=== PATIENT | female | born 1970 | race Caucasian/White ===

== ENCOUNTER → 2016-10-04 | Outpatient (CLI) | payer OTHER | END | disposition home or self-care (01) | LOC: ECT 09:01 | DX: F33.3 Major depressive disorder, recurrent, severe with psychotic symptoms (principal) ==

== ENCOUNTER 2016-10-19 09:22 | Outpatient (RCR) | payer OTHER ==
[~2016-10-19] VITALS: Ht 175.3 cm; Wt 63.5 kg
[2016-10-19] MEDS ORDERED: Methohexital Sodium Syr 100mg/10ml IVP ONE ×3 (09:23)
[2016-10-19] MEDS ORDERED: NS 500ML IV ONE ×3 (09:23)
[2016-10-19] MEDS ORDERED: Midazolam 2mg/2ml Inj ONE ×3 (09:23)
[2016-10-19] MEDS ORDERED: Succinylcholine 20mg/ml 10ml vial ONE ×3 (09:23)
[2016-10-19] MEDS ORDERED: Ketorolac 30mg Inj ONE ×2 (09:23)
[2016-10-19] MEDS ORDERED: Sodium Chloride 500ML 500 ML IV ONE (16:30)
[2016-10-21] MEDS ORDERED: Midazolam 2mg/2ml Inj ONE (06:00)
[2016-10-21] MEDS ORDERED: Methohexital Sodium Syr 100mg/10ml IVP ONE (06:00)
[2016-10-21] MEDS ORDERED: Ketorolac 60mg Inj ONE (06:00)
[2016-10-21] MEDS ORDERED: NS 500ML IV ONE (06:00)
[2016-10-21] MEDS ORDERED: Succinylcholine 20mg/ml 10ml vial ONE (06:00)
[2016-10-21] MEDS ORDERED: Sodium Chloride 500ML 500 ML IV ONE (09:19)
[2016-10-24] MEDS ORDERED: Sodium Chloride 500ML 500 ML IV ONE (10:35)
[2016-10-26] MEDS ORDERED: Succinylcholine 20mg/ml 10ml vial ONE (08:00)
[2016-10-26] MEDS ORDERED: Midazolam 2mg/2ml Inj ONE (08:00)
[2016-10-26] MEDS ORDERED: Methohexital Sodium Syr 100mg/10ml IVP ONE (08:00)
[2016-10-26] MEDS ORDERED: NS 500ML IV ONE (08:00)
[2016-10-26] MEDS ORDERED: Sodium Chloride 500ML 500 ML IV ONE (11:05)
[2016-10-28] MEDS ORDERED: Methohexital Sodium Syr 100mg/10ml IVP ONE (06:00)
[2016-10-28] MEDS ORDERED: Succinylcholine 20mg/ml 10ml vial ONE (06:00)
[2016-10-28] MEDS ORDERED: Ketorolac 60mg Inj ONE (06:00)
[2016-10-28] MEDS ORDERED: Midazolam 2mg/2ml Inj ONE (06:00)
[2016-10-28] MEDS ORDERED: NS 500ML IV ONE (06:00)
[2016-10-28] MEDS ORDERED: Sodium Chloride 500ML 500 ML IV ONE (09:33)
[2016-10-31] MEDS ORDERED: Ketorolac 30mg Inj ONE (09:23)
[2016-10-31] MEDS ORDERED: NS 500ML IV ONE (09:23)
[2016-10-31] MEDS ORDERED: Succinylcholine 20mg/ml 10ml vial ONE (09:23)
[2016-10-31] MEDS ORDERED: Methohexital Sodium Syr 100mg/10ml IVP ONE (09:23)
[2016-10-31] MEDS ORDERED: Midazolam 2mg/2ml Inj ONE (09:23)
[2016-10-31] MEDS ORDERED: Sodium Chloride 500ML 500 ML IV ONE (10:22)
[2016-11-02] MEDS ORDERED: Methohexital Sodium Syr 100mg/10ml IVP ONE (07:00)
[2016-11-02] MEDS ORDERED: Succinylcholine 20mg/ml 10ml vial ONE (07:00)
[2016-11-02] MEDS ORDERED: NS 500ML IV ONE (07:00)
[2016-11-02] MEDS ORDERED: Ketorolac 30mg Inj ONE (07:00)
[2016-11-02] MEDS ORDERED: Midazolam 2mg/2ml Inj ONE (07:00)
[2016-11-02] MEDS ORDERED: Sodium Chloride 500ML 500 ML IV ONE (10:47)
[2016-11-04] MEDS ORDERED: NS 500ML IV ONE (06:00)
[2016-11-04] MEDS ORDERED: Methohexital Sodium Syr 100mg/10ml IVP ONE (06:00)
[2016-11-04] MEDS ORDERED: Ketorolac 60mg Inj ONE (06:00)
[2016-11-04] MEDS ORDERED: Midazolam 2mg/2ml Inj ONE (06:00)
[2016-11-04] MEDS ORDERED: Succinylcholine 20mg/ml 10ml vial ONE (06:00)
[2016-11-04] MEDS ORDERED: Sodium Chloride 500ML 500 ML IV ONE (09:31)
[2016-11-07] MEDS ORDERED: Midazolam 2mg/2ml Inj ONE (06:00)
[2016-11-07] MEDS ORDERED: NS 500ML IV ONE (06:00)
[2016-11-07] MEDS ORDERED: Ketorolac 60mg Inj ONE (06:00)
[2016-11-07] MEDS ORDERED: Methohexital Sodium Syr 100mg/10ml IVP ONE (06:00)
[2016-11-07] MEDS ORDERED: Succinylcholine 20mg/ml 10ml vial ONE (06:00)
[2016-11-07] MEDS ORDERED: Sodium Chloride 500ML 500 ML IV ONE (12:02)
[2016-11-09] MEDS ORDERED: Midazolam 2mg/2ml Inj ONE (07:00)
[2016-11-09] MEDS ORDERED: Methohexital Sodium Syr 100mg/10ml IVP ONE (07:00)
[2016-11-09] MEDS ORDERED: NS 500ML IV ONE (07:00)
[2016-11-09] MEDS ORDERED: Ketorolac 30mg Inj ONE (07:00)
[2016-11-09] MEDS ORDERED: Succinylcholine 20mg/ml 10ml vial ONE (07:00)
[2016-11-09] MEDS ORDERED: Sodium Chloride 500ML 500 ML IV ONE (10:27)
== END 2016-11-12 | disposition home or self-care (01) ==
LOC: ECT 09:22
DX: F33.3 Major depressive disorder, recurrent, severe with psychotic symptoms (principal)
CPT/HCPCS: 90870; J0330; J1885; J2250; J2405; J7040

== ENCOUNTER 2016-11-14 10:20 | Outpatient (RCR) | payer OTHER ==
[~2016-11-14] VITALS: Ht 175.3 cm; Wt 63.5 kg
[2016-11-14] MEDS ORDERED: Ketorolac 30mg Inj ONE ×2 (10:21)
[2016-11-14] MEDS ORDERED: Midazolam 2mg/2ml Inj ONE ×2 (10:21)
[2016-11-14] MEDS ORDERED: Succinylcholine 20mg/ml 10ml vial ONE ×2 (10:21)
[2016-11-14] MEDS ORDERED: Methohexital Sodium Syr 100mg/10ml IVP ONE ×2 (10:21)
[2016-11-14] MEDS ORDERED: NS 500ML IV ONE ×2 (10:21)
[2016-11-14] MEDS ORDERED: Sodium Chloride 500ML 500 ML IV ONE (11:19)
[2016-11-16] MEDS ORDERED: Methohexital Sodium Syr 100mg/10ml IVP ONE (07:00)
[2016-11-16] MEDS ORDERED: Ketorolac 30mg Inj ONE (07:00)
[2016-11-16] MEDS ORDERED: NS 500ML IV ONE (07:00)
[2016-11-16] MEDS ORDERED: Succinylcholine 20mg/ml 10ml vial ONE (07:00)
[2016-11-16] MEDS ORDERED: Midazolam 2mg/2ml Inj ONE (07:00)
[2016-11-16] MEDS ORDERED: Sodium Chloride 500ML 500 ML IV ONE (11:28)
[2016-11-16] MEDS ORDERED: Atropine Sulfate 0.4mg/ml inj IVP PRN (11:28)
[2016-11-23] MEDS ORDERED: Methohexital Sodium Syr 100mg/10ml IVP ONE (08:00)
[2016-11-23] MEDS ORDERED: Ketorolac 30mg Inj ONE (08:00)
[2016-11-23] MEDS ORDERED: Midazolam 2mg/2ml Inj ONE (08:00)
[2016-11-23] MEDS ORDERED: Succinylcholine 20mg/ml 10ml vial ONE (08:00)
[2016-11-23] MEDS ORDERED: NS 500ML IV ONE (08:00)
[2016-11-23] MEDS ORDERED: Sodium Chloride 500ML 500 ML IV ONE (09:53)
[2016-12-05 10:05] VITALS: BP 122/86
[2016-12-05] MEDS ORDERED: Sodium Chloride 500ML 500 ML IV ONE (10:16)
[2016-12-05 10:20] VITALS: BP 108/56
[2016-12-05 10:25] VITALS: BP 112/71
[2016-12-05 10:30] VITALS: BP 121/72
[2016-12-05 10:35] VITALS: BP 115/66
== END 2016-12-13 | disposition home or self-care (01) ==
LOC: ECT 10:20
DX: F33.3 Major depressive disorder, recurrent, severe with psychotic symptoms (principal)
CPT/HCPCS: 90870; J0330; J1885; J2250; J2405; J7040

== ENCOUNTER 2016-12-26 07:38 | Outpatient (RCR) | payer OTHER ==
[~2016-12-26] VITALS: Ht 175.3 cm; Wt 63.5 kg
[2016-12-26] MEDS ORDERED: Succinylcholine 20mg/ml 10ml vial ONE (07:39)
[2016-12-26] MEDS ORDERED: Midazolam 2mg/2ml Inj ONE (07:39)
[2016-12-26] MEDS ORDERED: Ketorolac 30mg Inj ONE (07:39)
[2016-12-26] MEDS ORDERED: NS 500ML ONE (07:39)
[2016-12-26] MEDS ORDERED: Methohexital Sodium Syr 100mg/10ml IVP ONE (07:39)
[2016-12-26 10:35] VITALS: BP 121/76
[2016-12-26 10:45] VITALS: BP 125/71
[2016-12-26] MEDS ORDERED: Sodium Chloride 500ML 500 ML IV ONE (10:45)
[2016-12-26 10:50] VITALS: BP 119/65
[2016-12-26 10:55] VITALS: BP 117/71
[2016-12-26 11:00] VITALS: BP 125/65
== END 2017-01-12 | disposition home or self-care (01) ==
LOC: ECT 07:38
DX: F33.3 Major depressive disorder, recurrent, severe with psychotic symptoms (principal)
CPT/HCPCS: 90870; J0330; J1885; J2250; J2405; J7040

== ENCOUNTER 2017-01-16 06:00 | Outpatient (RCR) | payer OTHER ==
[~2017-01-16] VITALS: Ht 30.5 cm; Wt 0.5 kg
[2017-01-16] MEDS ORDERED: Succinylcholine 20mg/ml 10ml vial ONE (06:01)
[2017-01-16] MEDS ORDERED: Midazolam 2mg/2ml Inj ONE (06:01)
[2017-01-16] MEDS ORDERED: Methohexital Sodium Syr 100mg/10ml IVP ONE (06:01)
[2017-01-16] MEDS ORDERED: Ketorolac 60mg Inj ONE (06:01)
[2017-01-16] MEDS ORDERED: NS 500ML ONE (06:01)
[2017-01-16 10:23] VITALS: BP 128/82
[2017-01-16] MEDS ORDERED: Sodium Chloride 500ML 500 ML IV ONE (10:34)
[2017-01-16 10:35] VITALS: BP 151/81
[2017-01-16 10:40] VITALS: BP 139/83
[2017-01-16 10:45] VITALS: BP 134/73
[2017-01-16 10:50] VITALS: BP 132/71
== END 2017-02-12 | disposition home or self-care (01) ==
LOC: EDSEX → ECT 06:00
DX: F33.3 Major depressive disorder, recurrent, severe with psychotic symptoms (principal)
CPT/HCPCS: 90870; J0330; J2250; J2405; J7040

== ENCOUNTER 2017-02-15 07:09 | Outpatient (RCR) | payer OTHER ==
[~2017-02-15] VITALS: Ht 175.3 cm; Wt 63.5 kg
[2017-02-20] MEDS ORDERED: Succinylcholine 20mg/ml 10ml vial ONE (07:00)
[2017-02-20] MEDS ORDERED: Ketorolac 30mg Inj ONE (07:00)
[2017-02-20] MEDS ORDERED: Methohexital Sodium Syr 100mg/10ml IVP ONE (07:00)
[2017-02-20] MEDS ORDERED: NS 500ML ONE (07:00)
[2017-02-20] MEDS ORDERED: Midazolam 2mg/2ml Inj ONE (07:00)
[2017-02-20 11:40] VITALS: BP 132/84
[2017-02-20 12:03] VITALS: BP 108/55
[2017-02-20] MEDS ORDERED: Atropine Sulfate 0.4mg/ml inj IVP PRN (12:03)
[2017-02-20] MEDS ORDERED: Sodium Chloride 500ML 500 ML IV ONE (12:03)
[2017-02-20 12:08] VITALS: BP 114/67
[2017-02-20 12:13] VITALS: BP 114/69
[2017-02-20 12:18] VITALS: BP 112/73
[2017-03-13] MEDS ORDERED: Midazolam 2mg/2ml Inj ONE (07:00)
[2017-03-13] MEDS ORDERED: Ketorolac 30mg Inj ONE (07:00)
[2017-03-13] MEDS ORDERED: Methohexital Sodium Syr 100mg/10ml IVP ONE (07:00)
[2017-03-13] MEDS ORDERED: Succinylcholine 20mg/ml 10ml vial ONE (07:00)
[2017-03-13] MEDS ORDERED: NS 500ML ONE (07:00)
[2017-03-15] MEDS ORDERED: Methohexital Sodium Syr 100mg/10ml IVP ONE (08:00)
[2017-03-15] MEDS ORDERED: Midazolam 2mg/2ml Inj ONE (08:00)
[2017-03-15] MEDS ORDERED: NS 500ML ONE (08:00)
[2017-03-15] MEDS ORDERED: Succinylcholine 20mg/ml 10ml vial ONE (08:00)
[2017-03-15] MEDS ORDERED: Ketorolac 60mg Inj ONE (08:00)
[2017-03-15 09:43] VITALS: BP 125/88
[2017-03-15] MEDS ORDERED: Sodium Chloride 500ML 500 ML IV ONE (09:55)
[2017-03-16 10:00] VITALS: BP 135/85
[2017-03-16 10:05] VITALS: BP 125/81
[2017-03-16 10:10] VITALS: BP 131/80
[2017-03-16 10:15] VITALS: BP 122/72
== END 2017-03-15 | disposition home or self-care (01) ==
LOC: EDSEX → ECT 07:09
DX: F33.3 Major depressive disorder, recurrent, severe with psychotic symptoms (principal)
CPT/HCPCS: 90870; J0330; J1885; J2250; J2405; J7040

== ENCOUNTER 2017-03-17 05:34 | Outpatient (RCR) | payer OTHER ==
[~2017-03-17] VITALS: Ht 175.3 cm; Wt 63.5 kg
[2017-03-17] MEDS ORDERED: Ketorolac 30mg Inj ONE (05:35)
[2017-03-17] MEDS ORDERED: Succinylcholine 20mg/ml 10ml vial ONE (05:35)
[2017-03-17] MEDS ORDERED: NS 500ML ONE (05:35)
[2017-03-17] MEDS ORDERED: Midazolam 2mg/2ml Inj ONE (05:35)
[2017-03-17] MEDS ORDERED: Methohexital Sodium Syr 100mg/10ml IVP ONE (05:35)
[2017-03-17 09:04] VITALS: BP 120/82
[2017-03-17 09:20] VITALS: BP 146/94
[2017-03-17] MEDS ORDERED: Sodium Chloride 500ML 500 ML IV ONE (09:20)
[2017-03-17 09:25] VITALS: BP 130/86
[2017-03-17 09:30] VITALS: BP 125/84
[2017-03-17 09:35] VITALS: BP 177/88
[2017-03-20] MEDS ORDERED: Methohexital Sodium Syr 100mg/10ml IVP ONE (07:00)
[2017-03-20] MEDS ORDERED: Succinylcholine 20mg/ml 10ml vial ONE (07:00)
[2017-03-20] MEDS ORDERED: NS 500ML ONE (07:00)
[2017-03-20] MEDS ORDERED: Ketorolac 30mg Inj ONE (07:00)
[2017-03-20] MEDS ORDERED: Midazolam 2mg/2ml Inj ONE (07:00)
[2017-03-20 10:16] VITALS: BP 120/78
[2017-03-20] MEDS ORDERED: Sodium Chloride 500ML 500 ML IV ONE (10:37)
[2017-03-20 10:40] VITALS: BP 115/63
[2017-03-20 10:45] VITALS: BP 122/78
[2017-03-20 10:50] VITALS: BP 122/71
[2017-03-20 10:55] VITALS: BP 120/75
[2017-03-20 11:00] VITALS: BP 120/75
[2017-03-24] MEDS ORDERED: NS 500ML ONE (07:00)
[2017-03-24] MEDS ORDERED: Succinylcholine 20mg/ml 10ml vial ONE (07:00)
[2017-03-24] MEDS ORDERED: Midazolam 2mg/2ml Inj ONE (07:00)
[2017-03-24] MEDS ORDERED: Ketorolac 30mg Inj ONE (07:00)
[2017-03-24] MEDS ORDERED: Methohexital Sodium Syr 100mg/10ml IVP ONE (07:00)
[2017-03-24 08:57] VITALS: BP 121/78
[2017-03-24] MEDS ORDERED: Sodium Chloride 500ML 500 ML IV ONE (09:13)
[2017-03-24 09:15] VITALS: BP 131/83
[2017-03-24 09:20] VITALS: BP 129/76
[2017-03-24 09:25] VITALS: BP 123/76
[2017-03-24 09:30] VITALS: BP 131/63
[2017-03-29] MEDS ORDERED: Succinylcholine 20mg/ml 10ml vial ONE (07:00)
[2017-03-29] MEDS ORDERED: Ketorolac 30mg Inj ONE (07:00)
[2017-03-29] MEDS ORDERED: NS 500ML ONE (07:00)
[2017-03-29] MEDS ORDERED: Midazolam 2mg/2ml Inj ONE (07:00)
[2017-03-29] MEDS ORDERED: Methohexital Sodium Syr 100mg/10ml IVP ONE (07:00)
[2017-03-29 09:02] VITALS: BP 119/82
[2017-03-29] MEDS ORDERED: Sodium Chloride 500ML 500 ML IV ONE (09:17)
[2017-03-29 09:20] VITALS: BP 122/68
[2017-03-29 09:25] VITALS: BP 129/79
[2017-03-29 09:30] VITALS: BP 131/81
[2017-03-29 09:35] VITALS: BP 129/74
[2017-04-10] MEDS ORDERED: Ketorolac 30mg Inj ONE (08:00)
[2017-04-10] MEDS ORDERED: NS 500ML ONE (08:00)
[2017-04-10] MEDS ORDERED: Succinylcholine 20mg/ml 10ml vial ONE (08:00)
[2017-04-10] MEDS ORDERED: Methohexital Sodium Syr 100mg/10ml IVP ONE (08:00)
[2017-04-10] MEDS ORDERED: Midazolam 2mg/2ml Inj ONE (08:00)
[2017-04-10 09:25] VITALS: BP 124/75
[2017-04-10] MEDS ORDERED: Atropine Sulfate 0.4mg/ml inj IVP PRN (09:43)
[2017-04-10] MEDS ORDERED: Sodium Chloride 500ML 500 ML IV ONE (09:43)
[2017-04-10 09:45] VITALS: BP 119/68
[2017-04-10 09:50] VITALS: BP 114/65
[2017-04-10 09:55] VITALS: BP 117/63
[2017-04-10 10:00] VITALS: BP 114/55
== END 2017-04-12 | disposition home or self-care (01) ==
LOC: ECT 05:34
DX: F33.3 Major depressive disorder, recurrent, severe with psychotic symptoms (principal)
CPT/HCPCS: 90870; J0330; J1885; J2250; J2405; J7040

== ENCOUNTER 2017-04-26 05:32 | Outpatient (RCR) | payer OTHER ==
[~2017-04-26] VITALS: Ht 175.3 cm; Wt 63.5 kg
[2017-04-26] MEDS ORDERED: Methohexital Sodium Syr 100mg/10ml IVP ONE (05:33)
[2017-04-26] MEDS ORDERED: Midazolam 2mg/2ml Inj ONE (05:33)
[2017-04-26] MEDS ORDERED: Ketorolac 30mg Inj ONE (05:33)
[2017-04-26] MEDS ORDERED: Sodium Chloride 500ML 500 ML IV ONE (10:44)
[2017-04-26 10:45] VITALS: BP 130/73
[2017-04-26 10:50] VITALS: BP 124/70
[2017-04-26 10:55] VITALS: BP 126/70
[2017-04-26 11:00] VITALS: BP 140/73
== END 2017-05-13 | disposition home or self-care (01) ==
LOC: ECT 05:32
DX: F33.3 Major depressive disorder, recurrent, severe with psychotic symptoms (principal)
CPT/HCPCS: 90870; J1885; J2250; J2405

== ENCOUNTER 2017-05-22 07:08 | Outpatient (RCR) | payer OTHER ==
[~2017-05-22] VITALS: Ht 30.5 cm; Wt 0.5 kg
[2017-05-22] MEDS ORDERED: Methohexital Sodium 500mg Vial IVP ONE (07:09)
[2017-05-22] MEDS ORDERED: Ketorolac 60mg Inj ONE (07:09)
[2017-05-22] MEDS ORDERED: Succinylcholine 20mg/ml 10ml vial ONE (07:09)
[2017-05-22] MEDS ORDERED: Midazolam 2mg/2ml Inj ONE (07:09)
[2017-05-22 10:48] VITALS: BP 135/94
[2017-05-22 11:05] VITALS: BP 111/65
[2017-05-22] MEDS ORDERED: Sodium Chloride 500ML 500 ML IV ONE (11:05)
[2017-05-22 11:10] VITALS: BP 112/68
[2017-05-22 11:15] VITALS: BP 120/65
[2017-05-22 11:20] VITALS: BP 118/71
== END 2017-06-12 | disposition home or self-care (01) ==
LOC: ECT 07:08
DX: F33.3 Major depressive disorder, recurrent, severe with psychotic symptoms (principal)
CPT/HCPCS: 90870; J0330; J2250; J2405; J3490; J7040

== ENCOUNTER 2017-06-21 06:56 | Outpatient (RCR) | payer OTHER ==
[~2017-06-21] VITALS: Ht 30.5 cm; Wt 0.5 kg
[2017-06-21] MEDS ORDERED: NS 500ML ONE (06:57)
[2017-06-21] MEDS ORDERED: Succinylcholine 20mg/ml 10ml vial ONE (06:57)
[2017-06-21] MEDS ORDERED: Methohexital Sodium Syr 100mg/10ml IVP ONE (06:57)
[2017-06-21] MEDS ORDERED: Ketorolac 60mg Inj ONE (06:57)
[2017-06-21] MEDS ORDERED: Midazolam 2mg/2ml Inj ONE (06:57)
[2017-06-21 10:23] VITALS: BP 136/86
[2017-06-21] MEDS ORDERED: Sodium Chloride 500ML 500 ML IV ONE (10:41)
[2017-06-21 10:45] VITALS: BP 119/60
[2017-06-21 10:50] VITALS: BP 123/63
[2017-06-21 10:55] VITALS: BP 117/66
[2017-06-21 11:00] VITALS: BP 123/63
== END 2017-07-13 | disposition home or self-care (01) ==
LOC: ECT 06:56
DX: F33.3 Major depressive disorder, recurrent, severe with psychotic symptoms (principal)
CPT/HCPCS: 90870; J0330; J2250; J2405; J7040

== ENCOUNTER 2017-07-14 04:18 | Outpatient (RCR) | payer OTHER ==
[~2017-07-14] VITALS: Ht 175.3 cm; Wt 63.5 kg
[2017-07-14] MEDS ORDERED: Methohexital Sodium Syr 100mg/10ml IVP ONE (04:19)
[2017-07-14] MEDS ORDERED: NS 500ML ONE (04:19)
[2017-07-14] MEDS ORDERED: Ketorolac 30mg Inj ONE (04:19)
[2017-07-14] MEDS ORDERED: Midazolam 2mg/2ml Inj ONE (04:19)
[2017-07-14] MEDS ORDERED: Succinylcholine 20mg/ml 10ml vial ONE (04:19)
[2017-07-14 10:19] VITALS: BP 131/87
[2017-07-14] MEDS ORDERED: Sodium Chloride 500ML 500 ML IV ONE (10:36)
[2017-07-14 10:40] VITALS: BP 118/75
[2017-07-14 10:45] VITALS: BP 115/73
[2017-07-14 10:50] VITALS: BP 130/76
[2017-07-14 10:55] VITALS: BP 128/79
[2017-07-24] MEDS ORDERED: Ketorolac 60mg Inj ONE (07:00)
[2017-07-24] MEDS ORDERED: Midazolam 2mg/2ml Inj ONE (07:00)
[2017-07-24] MEDS ORDERED: Methohexital Sodium Syr 100mg/10ml IVP ONE (07:00)
[2017-07-24] MEDS ORDERED: Succinylcholine 20mg/ml 10ml vial ONE (07:00)
[2017-07-24] MEDS ORDERED: NS 500ML ONE (07:00)
[2017-07-24 11:56] VITALS: BP 133/86
[2017-07-24] MEDS ORDERED: Atropine Sulfate 0.4mg/ml inj IVP PRN (12:19)
[2017-07-24] MEDS ORDERED: Sodium Chloride 500ML 500 ML IV ONE (12:19)
[2017-07-24 12:20] VITALS: BP 124/70
[2017-07-24 12:25] VITALS: BP 126/77
[2017-07-24 12:30] VITALS: BP 129/79
[2017-07-24 12:35] VITALS: BP 124/74
[2017-07-28] MEDS ORDERED: Ketorolac 30mg Inj ONE (07:00)
[2017-07-28] MEDS ORDERED: Methohexital Sodium Syr 100mg/10ml IVP ONE (07:00)
[2017-07-28] MEDS ORDERED: NS 500ML ONE (07:00)
[2017-07-28] MEDS ORDERED: Succinylcholine 20mg/ml 10ml vial ONE (07:00)
[2017-07-28] MEDS ORDERED: Midazolam 2mg/2ml Inj ONE (07:00)
[2017-07-28 09:28] VITALS: BP 129/88
[2017-07-28] MEDS ORDERED: Atropine Sulfate 0.4mg/ml inj IVP PRN (09:53)
[2017-07-28] MEDS ORDERED: Sodium Chloride 500ML 500 ML IV ONE (09:53)
[2017-07-28 10:00] VITALS: BP_SYST 127; BP_SYST 131; BP_DIAS 74; BP_DIAS 81
[2017-07-28 10:05] VITALS: BP 125/74
[2017-07-28 10:10] VITALS: BP 121/73
[2017-08-07] MEDS ORDERED: Ketorolac 30mg Inj ONE (07:00)
[2017-08-07] MEDS ORDERED: Succinylcholine 20mg/ml 10ml vial ONE (07:00)
[2017-08-07] MEDS ORDERED: NS 500ML ONE (07:00)
[2017-08-07] MEDS ORDERED: Methohexital Sodium Syr 100mg/10ml IVP ONE (07:00)
[2017-08-07] MEDS ORDERED: Midazolam 2mg/2ml Inj ONE (07:00)
[2017-08-07 10:44] VITALS: BP 126/95
[2017-08-07] MEDS ORDERED: Sodium Chloride 500ML 500 ML IV ONE (11:01)
[2017-08-07 11:05] VITALS: BP 111/60
[2017-08-07 11:10] VITALS: BP 105/60
[2017-08-07 11:15] VITALS: BP 117/76
[2017-08-07 11:20] VITALS: BP 117/74
[2017-08-11 09:38] VITALS: BP 130/79
[2017-08-11 09:55] VITALS: BP 135/83
[2017-08-11] MEDS ORDERED: Sodium Chloride 500ML 500 ML IV ONE (09:55)
[2017-08-11 10:00] VITALS: BP 130/81
[2017-08-11 10:05] VITALS: BP 127/74
[2017-08-11 10:10] VITALS: BP 126/77
[2017-08-12] MEDS ORDERED: Succinylcholine 20mg/ml 10ml vial ONE (10:04)
[2017-08-12] MEDS ORDERED: Methohexital Sodium 500mg Vial IVP ONE (10:04)
[2017-08-12] MEDS ORDERED: Midazolam 2mg/2ml Inj ONE (10:04)
[2017-08-12] MEDS ORDERED: NS 500ML ONE (10:04)
[2017-08-12] MEDS ORDERED: Ketorolac 60mg Inj ONE (10:04)
== END 2017-08-12 | disposition home or self-care (01) ==
LOC: ECT 04:18
DX: F33.3 Major depressive disorder, recurrent, severe with psychotic symptoms (principal)
CPT/HCPCS: 90870; J0330; J1885; J2250; J2405; J3490; J7040

== ENCOUNTER 2017-08-18 05:07 | Outpatient (RCR) | payer OTHER ==
[~2017-08-18] VITALS: Ht 175.3 cm; Wt 63.5 kg
[2017-08-18] MEDS ORDERED: Midazolam 2mg/2ml Inj ONE (05:08)
[2017-08-18] MEDS ORDERED: NS 500ML ONE (05:08)
[2017-08-18] MEDS ORDERED: Methohexital Sodium Syr 100mg/10ml IVP ONE (05:08)
[2017-08-18] MEDS ORDERED: Succinylcholine 20mg/ml 10ml vial ONE (05:08)
[2017-08-18] MEDS ORDERED: Ketorolac 30mg Inj ONE (05:08)
[2017-08-18 09:24] VITALS: BP 129/87
[2017-08-18 09:44] VITALS: BP 107/61
[2017-08-18] MEDS ORDERED: Sodium Chloride 500ML 500 ML IV ONE (09:44)
[2017-08-18 09:49] VITALS: BP 121/67
[2017-08-18 09:54] VITALS: BP 120/64
[2017-08-18 09:59] VITALS: BP 117/69
[2017-08-30] MEDS ORDERED: Methohexital Sodium Syr 100mg/10ml IVP ONE (08:00)
[2017-08-30] MEDS ORDERED: Succinylcholine 20mg/ml 10ml vial ONE (08:00)
[2017-08-30] MEDS ORDERED: Ketorolac 30mg Inj ONE (08:00)
[2017-08-30] MEDS ORDERED: NS 500ML ONE (08:00)
[2017-08-30] MEDS ORDERED: Midazolam 2mg/2ml Inj ONE (08:00)
[2017-08-30] MEDS ORDERED: Sodium Chloride 500ML 500 ML IV ONE (10:31)
[2017-08-30 10:35] VITALS: BP 102/53
[2017-08-30 10:40] VITALS: BP 122/56
[2017-08-30 10:45] VITALS: BP 118/69
[2017-08-30 10:50] VITALS: BP 120/64
[2017-08-30 11:00] VITALS: BP 119/63
== END 2017-09-12 | disposition home or self-care (01) ==
LOC: ECT 05:07
DX: F33.3 Major depressive disorder, recurrent, severe with psychotic symptoms (principal)
CPT/HCPCS: 90870; J0330; J1885; J2250; J2405; J7040